=== PATIENT | female | born 1970 | race African-American/Black ===

== ENCOUNTER 2016-06-13 08:51 | Emergency (ER) | payer OTHER ==
[~2016-06-13] VITALS: Ht 167.6 cm; Wt 97.5 kg
[~2016-06-13 08:51] MED LIST: IBUPROFEN800 MG PO; PROPRANOLOL HCL60 M1 PO; VOLTAREN75 MG PO
[2016-06-13] MEDS ORDERED: AUGMENTIN875 MG PO (09:40)
[2016-06-13] MEDS ORDERED: ZYRTEC10 M3 PO (09:40)
[2016-06-13 09:51] VITALS: BP 155/103
== END 2016-06-13 09:55 | disposition home or self-care (01) ==
LOC: EME 08:51
DX: J06.9 Acute upper respiratory infection, unspecified (principal); J32.9 Chronic sinusitis, unspecified; F17.200 Nicotine dependence, unspecified, uncomplicated; Z71.6 Tobacco abuse counseling
CPT/HCPCS: 99281; 99283

== ENCOUNTER → 2016-06-29 | Outpatient (CLI) | payer OTHER ==
[~2016-06-29] MED LIST changes: +AUGMENTIN875 MG PO; +ZYRTEC10 M3 PO
== END | disposition home or self-care (01) ==
LOC: NUC 09:30
DX: E05.90 Thyrotoxicosis, unspecified without thyrotoxic crisis or storm (principal)
CPT/HCPCS: 79005; A9517